=== PATIENT | male | born 1950 | race Caucasian/White ===

== ENCOUNTER 2020-03-07 12:43 | Emergency (ER) | payer MEDICARE ==
[~2020-03-07] VITALS: Ht 190.5 cm; Wt 125.0 kg
[~2020-03-07 12:43] MED LIST: ASPI325T11 PO; ATOR40TA59 PO; LISI-334 PO
[2020-03-07 13:01] LABS: BASO # 0.1 x10^3/uL (0.0-0.2); BASO % 1 % (0-3); EOS # 0.1 x10^3/uL (0.0-0.7); EOS % 2 % (0-3); HEMATOCRIT 46.4 % (39.0-53.0); HEMOGLOBIN 15.5 g/dL (13.0-17.5); LYMPH # 2.3 x10^3/uL (1.0-4.8); LYMPH % 30 % (24-48); MEAN CORPUSCULAR HEMOGLOBIN 30 pg (25-35); MEAN CORPUSCULAR HGB CONC 34 g/dL (31-37); MEAN CORPUSCULAR VOLUME 89 fL (79-100); MONO # 0.6 x10^3/uL (0.0-1.1); MONO % 8 % (0-9); NEUT # 4.6 x10^3/uL (1.8-7.7); NEUT % 60 % (31-73); PLATELET COUNT 219 x10^3/uL (140-400); RED BLOOD COUNT 5.22 x10^6/uL (4.30-5.70); RED CELL DISTRIBUTION WIDTH 13.7 % (11.5-14.5); WHITE BLOOD COUNT 7.7 x10^3/uL (4.0-11.0)
[2020-03-07 13:08] LABS: CALCIUM 9.3 mg/dL (8.5-10.1); CREATININE 1.1 mg/dL (0.7-1.3); POTASSIUM 4.2 mmol/L (3.5-5.1)
[2020-03-07 13:14] LABS: ALBUMIN 3.8 g/dL (3.4-5.0); ALBUMIN/GLOBULIN RATIO 1.2 (1.0-1.7); MAGNESIUM 1.9 mg/dL (1.8-2.4); TOTAL PROTEIN 7.1 g/dL (6.4-8.2)
[2020-03-07 13:55] VITALS: BP 133/75
[2020-03-07] MEDS ORDERED: CLOPIDOGREL BISULFATE 75 MG TABLET PO ONE (14:00)
--- NOTE | 2020-03-07 14:09 | PHYS DOC ---
Past Medical History Past Medical History: High Cholesterol, Hypertension, TIA, Other Additional Past Medical Histor: cataracts Past Surgical History: No Surgical History Smoking Status: Never Smoker Alcohol Use: None General Adult EDM: Chief Complaint: DIZZY/LIGHT HEADED HPI: HPI: Patient is a 69 year old male who was brought here by EMS from home due to 1 brief episode of dizziness with tingling sensation around his mouth on his lip area. Symptoms lasted for about a couple minutes. Patient said he felt better at home however his insisted to call EMS to take him here for evaluation. Patient was evaluated here on March 03 for the same problem, he was admitted for CVA symptom, CTA head and neck was negative, MRI showed subacute stroke. Patient was evaluated by neurologist Dr. Ayala Liao, who put him on aspirin and Lipitor. He was discharged home on 03/04/20. Patient denies any headache, no chest pain, no abdominal pain, no nausea vomiting, no blurred vision. Patient denies neck pain. Patient denies any numbness in his extremities, no weakness in her extremities. Review of Systems: Review of Systems: Constitutional: Denies fever or chills. [] Eyes: Denies change in visual acuity. [] HENT: Denies nasal congestion or sore throat. [] Respiratory: Denies cough or shortness of breath. [] Cardiovascular: Denies chest pain or edema. [] GI: Denies abdominal pain, nausea, vomiting, bloody stools or diarrhea. [] : Denies dysuria. [] Musculoskeletal: Denies back pain or joint pain. [] Integument: Denies rash. [] Neurologic: Denies headache, focal weakness or sensory changes. DIZZINESS WITH TINGLING SENSATION AROUND HER MOUTH Endocrine: Denies polyuria or polydipsia. [] Lymphatic: Denies swollen glands. [] Psychiatric: Denies depression or anxiety. [] Heart Score: Risk Factors: Risk Factors: DM, Current or recent (<one month) smoker, HTN, HLP, family history of CAD, obesity. Risk Scores: Score 0 - 3: 2.5% MACE over next 6 weeks - Discharge Home Score 4 - 6: 20.3% MACE over next 6 weeks - Admit for Clinical Observation Score 7 - 10: 72.7% MACE over next 6 weeks - Early Invasive Strategies Current Medications: Current Medications Medications (Trade) Dose Ordered Sig/Catherine Start Time Stop Time Status Last Admin Dose Admin Clopidogrel Bisulfate (Plavix) 75 mg 1X ONCE 03/07/20 14:00 03/07/20 14:01 DC 03/07/20 13:57 75 MG Allergies: Allergies: Allergies Coded Allergies Type Severity Reaction Last Updated Verified No Known Drug Allergies 03/03/20 No Physical Exam: PE: Constitutional: Well developed, well nourished, no acute distress, non-toxic appearance. [] HENT: Normocephalic, atraumatic, bilateral external ears normal, oropharynx moist, no oral exudates, nose normal. [] Eyes: PERRLA, EOMI, conjunctiva normal, no discharge. [] Neck: Normal range of motion, no tenderness, supple, no stridor. [] Cardiovascular:Heart rate regular rhythm, no murmur [] Lungs & Thorax: Bilateral breath sounds clear to auscultation [] Abdomen: Bowel sounds normal, soft, no tenderness, no masses, no pulsatile masses. [] Skin: Warm, dry, no erythema, no rash. [] Back: No tenderness, no CVA tenderness. [] Extremities: No tenderness, no cyanosis, no clubbing, ROM intact, no edema. [] Neurologic: Alert and oriented X 3, normal motor function, normal sensory function, no focal deficits noted. [] Psychologic: Affect normal, judgement normal, mood normal. [] Current Patient Data: Labs: Laboratory Tests Test 03/07/20 12:40 03/07/20 12:48 03/07/20 13:15 Glucose (Fingerstick) 140 mg/dL (70-99) H White Blood Count 7.7 x10^3/uL (4.0-11.0) Red Blood Count 5.22 x10^6/uL (4.30-5.70) Hemoglobin 15.5 g/dL (13.0-17.5) Hematocrit 46.4 % (39.0-53.0) Mean Corpuscular Volume 89 fL (79-100) Mean Corpuscular Hemoglobin 30 pg (25-35) Mean Corpuscular Hemoglobin Concent 34 g/dL (31-37) Red Cell Distribution Width 13.7 % (11.5-14.5) Platelet Count 219 x10^3/uL (140-400) Neutrophils (%) (Auto) 60 % (31-73) Lymphocytes (%) (Auto) 30 % (24-48) Monocytes (%) (Auto) 8 % (0-9) Eosinophils (%) (Auto) 2 % (0-3) Basophils (%) (Auto) 1 % (0-3) Neutrophils # (Auto) 4.6 x10^3/uL (1.8-7.7) Lymphocytes # (Auto) 2.3 x10^3/uL (1.0-4.8) Monocytes # (Auto) 0.6 x10^3/uL (0.0-1.1) Eosinophils # (Auto) 0.1 x10^3/uL (0.0-0.7) Basophils # (Auto) 0.1 x10^3/uL (0.0-0.2) Sodium Level 139 mmol/L (136-145) Potassium Level 4.2 mmol/L (3.5-5.1) Chloride Level 104 mmol/L (98-107) Carbon Dioxide Level 30 mmol/L (21-32) Anion Gap 5 (6-14) L Blood Urea Nitrogen 22 mg/dL (8-26) Creatinine 1.1 mg/dL (0.7-1.3) Estimated GFR (Cockcroft-Gault) 66.0 BUN/Creatinine Ratio 20 (6-20) Glucose Level 134 mg/dL (70-99) H Calcium Level 9.3 mg/dL (8.5-10.1) Magnesium Level 1.9 mg/dL (1.8-2.4) Total Bilirubin 1.0 mg/dL (0.2-1.0) Aspartate Amino Transferase (AST) 22 U/L (15-37) Alanine Aminotransferase (ALT) 30 U/L (16-63) Alkaline Phosphatase 102 U/L (46-116) Troponin I Quantitative < 0.017 ng/mL (0.000-0.055) Total Protein 7.1 g/dL (6.4-8.2) Albumin 3.8 g/dL (3.4-5.0) Albumin/Globulin Ratio 1.2 (1.0-1.7) Prothrombin Time 14.0 SEC (11.7-14.0) Prothrombin Time INR 1.1 (0.8-1.1) Activated Partial Thromboplast Time 30 SEC (24-38) Laboratory Tests 03/07/20 12:48 Laboratory Tests 03/07/20 12:48 Vital Signs: Vital Signs Date Time Temp Pulse Resp B/P (MAP) Pulse Ox O2 Delivery O2 Flow Rate FiO2 03/07/20 12:42 98.0 64 18 160/76 (104) 98 Room Air 98.0 EKG: EKG: EKG was done and read by this physician at 1235, heart rate of 63 bpm, [] Radiology/Procedures: Radiology/Procedures: [] Course & Med Decision Making: Course & Med Decision Making Pertinent Labs and Imaging studies reviewed. (See chart for details) Consulted Dr. Ayala DANIELS, NEUROLOGIST RN EMERGENCY ROOM, RECOMMENDED TO PUT PATIENT ON PLAVIX 75 MG DAILY, DISCHARGE HOME, FOLLOW UP WITH HIM IN CLINIC IN TWO WEEKS. Patient had no symptom in ER, he just had complete work-up last week, there is no need to repeat CT scan of head today. Patient will be discharged home, follow-up with neurologist in a couple weeks. Patient is amenable to plan of care. Dragon Disclaimer: Dragon Disclaimer: This electronic medical record was generated, in whole or in part, using a voice recognition dictation system. Departure Departure Impression: Primary Impression: TIA (transient ischemic attack) Disposition: HOME, SELF-CARE Condition: STABLE Referrals: MICKEY ORTEGA MD (PCP) AYALA DANIELS MD PLEASE CALL THIS NEUROLOGIST TOMORROW FOR FOLLOW UP IN 2 WEEKS. Patient Instructions: Transient Ischemic Attack Scripts Clopidogrel Bisulfate (PLAVIX) 75 Mg Tablet 1 TAB PO DAILY for 30 Days, #30 TAB 0 Refills Prov: MERLYN MOJICA DO 03/07/20 NIHSS Stroke Scale NIH Stroke Scale: NIH Stroke Scale Response (Comments) Value Level of Consciousness: 0 Alert/Responsive 0 LOC Questions: 0 Answers both correctly 0 LOC Commands: 0 Performs both tasks 0 Best Gaze: 0 Normal 0 Visual: 0 No visual loss 0 Facial Palsy: 0 Normal, symmetrical 0 Motor - Left Arm 0 No drift 0 Motor - Right Arm 0 No drift 0 Motor - Left Leg 0 No drift 0 Motor: Right Leg 0 No drift 0 Limb Ataxia: 0 Absent 0 Sensory: 0 No loss 0 Best Language: 0 Normal 0 Dysathria: 0 Normal 0 Extinction and Inattention: 0 Normal 0 Total 0 MERLYN MOJICA DO March 07, 2020 14:09
[2020-03-07] MEDS ORDERED: FLUORESCEIN OPHTH TEST STRIP. OD ONE (14:15)
[2020-03-07] MEDS ORDERED: CLOP75TA57 PO (14:22)
--- NOTE | 2020-03-08 08:05 | EKG ---
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
== END 2020-03-07 14:51 | disposition home or self-care (01) ==
LOC: ER 12:43
DX: G45.9 Transient cerebral ischemic attack, unspecified (principal); I10 Essential (primary) hypertension; E78.00 Pure hypercholesterolemia, unspecified
CPT/HCPCS: 36415; 80053; 82962; 83735; 84484; 85025; 85610; 85730; 93005; 99284

== ENCOUNTER 2020-08-07 10:15 | Emergency (ER) | payer MEDICARE ==
[~2020-08-07] VITALS: Ht 188 cm; Wt 123.0 kg
[~2020-08-07 10:15] MED LIST changes: +CLOP75TA57 PO
--- NOTE | 2020-08-07 11:16 | PHYS DOC ---
Past Medical History Past Medical History: High Cholesterol, Hypertension, TIA, Other Additional Past Medical Histor: cataracts, VERTIGO Past Surgical History: Other Additional Past Surgical Histo: LEFT EYE CATARACT SX Smoking Status: Never Smoker Alcohol Use: None General Adult EDM: Chief Complaint: MECHANICAL FALL HPI: HPI: Patient is a 70 year old male who presents with states he got up out of bed this morning and he stood up and turned to go into the bathroom the next he knows he is fallen and up against the door jam. He states that he did hit the left side of his head but he does not have a headache or dizziness and did not lose consciousness. He is on Plavix. He states that his left hip is bothering him more than anything. He is up and walking on the left hip but it is painful. Patient rates his pain a 0 out of 10 when laying but when he is up and standing he rates it at a 8/10. Patient has history of high cholesterol, hypertension, TIA, vertigo, cataracts. Review of Systems: Review of Systems: Constitutional: Denies fever or chills. + Fall [] Eyes: Denies change in visual acuity. [] HENT: Denies nasal congestion or sore throat. [] Respiratory: Denies cough or shortness of breath. [] Cardiovascular: Denies chest pain or edema. [] GI: Denies abdominal pain, nausea, vomiting, bloody stools or diarrhea. [] : Denies dysuria. [] Musculoskeletal: Thoracic paraspinal back pain or left hip joint pain. [] Integument: Denies rash. Left posterior wrist abrasion [] Neurologic: Denies headache, focal weakness or sensory changes. Hit his head on door jam. [] Endocrine: Denies polyuria or polydipsia. [] Lymphatic: Denies swollen glands. [] Psychiatric: Denies depression or anxiety. [] Heart Score: Risk Factors: Risk Factors: DM, Current or recent (<one month) smoker, HTN, HLP, family history of CAD, obesity. Risk Scores: Score 0 - 3: 2.5% MACE over next 6 weeks - Discharge Home Score 4 - 6: 20.3% MACE over next 6 weeks - Admit for Clinical Observation Score 7 - 10: 72.7% MACE over next 6 weeks - Early Invasive Strategies Allergies: Allergies: Allergies Coded Allergies Type Severity Reaction Last Updated Verified No Known Drug Allergies 03/03/20 No Physical Exam: PE: Constitutional: Well developed, well nourished, no acute distress, non-toxic appearance. [] HENT: Normocephalic, atraumatic, bilateral external ears normal, oropharynx moist, no oral exudates, nose normal. [] Eyes: PERRLA, EOMI, conjunctiva normal, no discharge. [] Neck: Normal range of motion, no tenderness, supple, no stridor. [] Cardiovascular:Heart rate regular rhythm, no murmur [] Lungs & Thorax: Bilateral breath sounds clear to auscultation [] Abdomen: Bowel sounds normal, soft, no tenderness, no masses, no pulsatile masses. [] Skin: Warm, dry, no erythema, no rash. Left posterior wrist superficial abr asion. [] Back: No tenderness, no CVA tenderness. [] Extremities: No tenderness, no cyanosis, no clubbing, ROM intact, no edema. [] Neurologic: Alert and oriented X 3, normal motor function, normal sensory function, no focal deficits noted. [] Psychologic: Affect normal, judgement normal, mood normal. [] Current Patient Data: Vital Signs: Vital Signs Date Time Temp Pulse Resp B/P (MAP) Pulse Ox O2 Delivery O2 Flow Rate FiO2 08/07/20 10:40 97.4 69 16 163/116 (132) 97 Room Air 97.4 EKG: EK and read by Dr Mcdonald as Sinus Rhythm and no STEMI[] Radiology/Procedures: Radiology/Procedures: [] Impression: [facility] [address] [place] [address] IMAGING REPORT Signed PATIENT: NAWAF CAR ACCOUNT: [id number] : 1950 LOCATION: ER AGE: 70 SEX: M EXAM STATUS: REG ER ORD. PHYSICIAN: JOSE BOOTHE APRN REASON: FALL, LEFT HIP PAIN PROCEDURE: HIP LEFT 2V WITH PELVIS PROCEDURE: HIP LEFT 2V WITH PELVIS STUDY DATE: 08/07/2020 CLINICAL INDICATION / HISTORY: Reason: FALL / Spl. Instructions: / History: . TECHNIQUE:Three views of the left hip were obtained, including an AP view of the pelvis. COMPARISON: None FINDINGS: The osseous structures are normally mineralized. There is normal bony alignment present with the femoral heads well-seated within the acetabuli. There is no evidence of acute fracture or dislocation identified. There is mild medial joint space narrowing.. The overlying soft tissues are grossly unremarkable. IMPRESSION: No acute traumatic findings in the pelvis and left hip. PROCEDURE: CT HEAD AND CERVICAL SPINE WO, HIP LEFT 2V WITH PELVIS, THORACIC SPINE 3V STUDY DATE: 08/07/2020 CLINICAL INDICATION / HISTORY: Reason: FALL / Spl. Instructions: / History: . TECHNIQUE: Thoracic spine was examined in the lateral, AP and swimmer's lateral views. COMPARISON: None FINDINGS: The osseous structures are normally mineralized for age. There is a normal thoracic kyphosis with normal alignment of the thoracic vertebral bodies. There is preservation of the vertebral body heights but mild diffuse narrowing of the intervertebral disk space heights throughout the thoracic spine. No evidence of acute fracture or subluxation is identified. IMPRESSION: No acute traumatic findings in the thoracic spine. Electronically signed by: Trevon Champion MD (08/07/2020 12:22 PM) [facility] DICTATED and SIGNED BY: TREVON CHAMPION MD DATE: 08/07/20 1222 [facility] [address] [place], [place] [id number] IMAGING REPORT Signed PATIENT: NAWAF CAR ACCOUNT: [id number] : 1950 LOCATION: ER AGE: 70 SEX: M EXAM STATUS: REG ER ORD. PHYSICIAN: JOSE BOOTHE APRN REASON: FALL PROCEDURE: CT HEAD AND CERVICAL SPINE WO ADDENDUM ADDENDUM #1 In addition to the radiographs of the hip and thoracic spine, CT imaging of the head and cervical spine was performed. Report on those additional images are included here as an addendum as follows: EXAM: CT Head without IV contrast INDICATION: Reason: FALL / Spl. Instructions: / History: TECHNIQUE: Multi-detector row CT images were obtained of the head without the use of IV contrast. All CT scans performed at this facility utilize dose optimization techniques as appropriate to the exam, including the following: Automated exposure control and adjustment of the mA and/or KV according to patient size (this includes techniques or standardized protocols for targeted exams where dose is indication/reason for exam). COMPARISON: None FINDINGS: BRAIN PARENCHYMA: No evidence of acute intraparenchymal hemorrhage or infarct. No abnormal parenchymal density or mass. VENTRICLES & EXTRA-AXIAL SPACES: Ventricles are within normal limits. Basilar cisterns are patent. No pathologic extra-axial fluid collection or mass. ORBITS: Orbital contents are unremarkable. SINUSES: Visualized paranasal sinuses and mastoid air cells are clear. OSSEOUS & SOFT TISSUES: Calvarium and skull base are intact. IMPRESSION: No acute intracranial pathology. EXAM: CT Cervical Spine without IV contrast INDICATION: Reason: FALL / Spl. Instructions: / History: TECHNIQUE: Multi-detector row CT images were obtained through the cervical spine without the use of IV contrast. Post-processing sagittal and coronal reconstructed images were obtained for interpretation. All CT scans performed at this facility utilize dose optimization techniques as appropriate to the exam, including the following: Automated exposure control and adjustment of the mA and/or KV according to patient size (this includes techniques or standardized protocols for targeted exams where dose is indication/reason for exam). COMPARISON: None FINDINGS: CRANIOCERVICAL JUNCTION: Unremarkable. ALIGNMENT: Alignment is within normal limits. OSSEOUS: No evidence of fracture or bone destruction. DISC SPACES: Multilevel disc degenerative changes most conspicuous at C5-C6 and C6-C7. FACET JOINTS: Facet hypertrophic changes present at multiple levels, most conspicuously on the left at C3-C4. SPINAL CANAL: Unremarkable. NEUROFORAMINA: Unremarkable. SOFT TISSUES: There is a 5 cm right thyroid lobe mass. This is recommended for further imaging evaluation by targeted ultrasound on a nonemergent basis. Scattered carotid calcifications also present. IMPRESSION: 1. No acute traumatic findings in the cervical spine. 2. Right thyroid lobe 5 cm mass, recommended for further imaging evaluation on a nonemergent basis by ultrasound if not already performed. Electronically signed by: Trevon Champion MD (08/07/2020 1:09 PM) DICTATED AND SIGNED BY: TREVON CHAMPION MD DATE: 08/07/20 4656 Course & Med Decision Making: Course & Med Decision Making Pertinent Labs and Imaging studies reviewed. (See chart for details) Alert and oriented x4. Ambulatory with a steady gait. There is no tenderness, bruising, rotation, shortening of the left hip or leg. No swelling of the joint. No deformities. Patient has a small superficial abrasion to the left posterior wrist, there is no swelling is full range of motion of the joint. He states he does not have any pain in the wrist. Patient has no swelling, bruising, deformities, lacerations or abrasions or bumps or tenderness to his head or face. Patient states that he has some paraspinal thoracic pain with movement but he states this just sore and only with movement. There is no focal bony spinal tenderness and no deformity to the spine. There is no bruising or tenderness to his back. Speaks in full clear sentences. Patient denies chest pain, nausea, vomiting, headache, dizziness, vision changes, numbness or tinglin g, loss of bowel or bladder, shortness of breath, abdominal pain, focal weakness. She states that 2 days ago he was seen by his doctor for vertigo and they gave him meclizine and he is been taking the meclizine and the vertigo is gone. He states that before the fall he was not dizzy, there was no headache, there is no chest pain or shortness of air or vision changes or numbness and tingling. He has full range of motion of his neck. He has full range of motion of the hips bilaterally. [] Dragon Disclaimer: Dragon Disclaimer: This electronic medical record was generated, in whole or in part, using a voice recognition dictation system. Departure Departure Impression: Primary Impression: Fall Qualified Codes: W19.XXXA - Unspecified fall, initial encounter Additional Impressions: Head injury Qualified Codes: S09.90XA - Unspecified injury of head, initial encounter Hip pain, left Disposition: 01 HOME, SELF-CARE Condition: STABLE Referrals: MICKEY ORTEGA MD (PCP) Patient Instructions: Contusion, Fall Prevention and Home Safety Additional Instructions: Follow-up with primary care provider if needed. Begin having severe headache and dizziness or vomiting return to the emergency room. Use ice and a heating pad to help with your pain. Scripts Hydrocodone/Apap 5-325 (NORCO 5-325 TABLET) 1 Each Tablet 1 TAB PO PRN Q6HRS PRN for PAIN, #10 TAB 0 Refills Prov: BAFUS,JOSE M ASSOCIATE DIRECTOR REGULATORY AFFAIRS 08/07/20 JOSE BOOTHE APRN Aug 07, 2020 11:16
[2020-08-07 11:28] LABS: BASO # 0.1 x10^3/uL (0.0-0.2); BASO % 1 % (0-3); EOS # 0.2 x10^3/uL (0.0-0.7); EOS % 3 % (0-3); HEMATOCRIT 42.1 % (39.0-53.0); HEMOGLOBIN 14.4 g/dL (13.0-17.5); LYMPH # 2.3 x10^3/uL (1.0-4.8); LYMPH % 26 % (24-48); MEAN CORPUSCULAR HEMOGLOBIN 31 pg (25-35); MEAN CORPUSCULAR HGB CONC 34 g/dL (31-37); MEAN CORPUSCULAR VOLUME 90 fL (79-100); MONO # 0.6 x10^3/uL (0.0-1.1); MONO % 7 % (0-9); NEUT # 5.6 x10^3/uL (1.8-7.7); NEUT % 64 % (31-73); PLATELET COUNT 219 x10^3/uL (140-400); RED BLOOD COUNT 4.68 x10^6/uL (4.30-5.70); RED CELL DISTRIBUTION WIDTH 13.4 % (11.5-14.5); WHITE BLOOD COUNT 8.8 x10^3/uL (4.0-11.0)
--- NOTE | 2020-08-07 11:38 | EKG ---
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
[2020-08-07 11:43] LABS: GFR 73.5; POTASSIUM 4.5 mmol/L (3.5-5.1); PROTHROMBIN TIME PATIENT 13.3 SEC (11.7-14.0)
[2020-08-07 11:48] LABS: ALBUMIN 3.7 g/dL (3.4-5.0); ALBUMIN/GLOBULIN RATIO 1.3 (1.0-1.7); TOTAL BILIRUBIN 0.7 mg/dL (0.2-1.0); TOTAL PROTEIN 6.6 g/dL (6.4-8.2)
--- NOTE | 2020-08-07 12:25 | RAD ---
PROCEDURE: HIP LEFT 2V WITH PELVIS STUDY DATE: 08/07/2020 CLINICAL INDICATION / HISTORY: Reason: FALL / Spl. Instructions: / History: . TECHNIQUE:Three views of the left hip were obtained, including an AP view of the pelvis. COMPARISON: None FINDINGS: The osseous structures are normally mineralized. There is normal bony alignment present with the femoral heads well-seated within the acetabuli. There is no evidence of acute fracture or dislocation identified. There is mild medial joint space narrowing.. The overlying soft tissues are grossly unremarkable. IMPRESSION: No acute traumatic findings in the pelvis and left hip. PROCEDURE: CT HEAD AND CERVICAL SPINE WO, HIP LEFT 2V WITH PELVIS, THORACIC SPINE 3V STUDY DATE: 08/07/2020 CLINICAL INDICATION / HISTORY: Reason: FALL / Spl. Instructions: / History: . TECHNIQUE: Thoracic spine was examined in the lateral, AP and swimmer's lateral views. COMPARISON: None FINDINGS: The osseous structures are normally mineralized for age. There is a normal thoracic kyphosis with normal alignment of the thoracic vertebral bodies. There is preservation of the vertebral body heights but mild diffuse narrowing of the intervertebral disk space heights throughout the thoracic spine. No evidence of acute fracture or subluxation is identified. IMPRESSION: No acute traumatic findings in the thoracic spine. Electronically signed by: Lamar Champion MD (08/07/2020 12:22 PM) [facility] [place]
[2020-08-07] MEDS ORDERED: HYDR-3164 PO (13:25)
[2020-08-07 13:45] VITALS: BP 142/75
== END 2020-08-07 13:45 | disposition home or self-care (01) ==
LOC: ER 10:15
DX: S09.8XXA Other specified injuries of head, initial encounter (principal); M54.5 Low back pain; R42 Dizziness and giddiness; M25.552 Pain in left hip; E78.00 Pure hypercholesterolemia, unspecified; I10 Essential (primary) hypertension; I25.2 Old myocardial infarction; Z98.890 Other specified postprocedural states; W18.09XA Striking against other object with subsequent fall, initial encounter; Y93.89 Activity, other specified; Y92.89 Other specified places as the place of occurrence of the external cause; Y99.8 Other external cause status
CPT/HCPCS: 36415; 70450; 72072; 72125; 73502; 80053; 84484; 85025; 85610; 93005; 99285